=== PATIENT | male | born 1945 ===

== ENCOUNTER 2017-02-12 06:32 | Day surgery (SDC) | payer BC, MEDICARE ==
[2017-02-07 09:53] VITALS: BMI 26.9
[2017-02-12] MEDS ORDERED: Phenylephrine 10 mg/ml Inj ONE (07:21)
[2017-02-12] MEDS ORDERED: ePHEDrine 50 mg/ml Inj ONE (07:22)
[2017-02-12] MEDS ORDERED: Midazolam 2 MG/2 ML VIAL ONE ×3 (08:00→08:21)
[2017-02-12] MEDS ORDERED: Lidocaine 2% Inj (20ml) ONE (08:12)
[2017-02-12] MEDS ORDERED: Iodixanol 320 MG/ML 100 ML BOTTLE IV ONE (08:22)
[2017-02-12] MEDS ORDERED: Propofol 10 mg/ml Inj (20 ML) ONE (09:24)
--- NOTE | 2017-02-12 10:02 | PCM.SURG1 ---
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 ocelot used. balloon angioplasty of peroneal artery(2.5 x 120). perclose left groin Specimen/Specimens Removed: 0 Estimated Blood Loss: EBL {In ML}: 25 Blood Products Given: N/A Drains Used: No Drains Post-Op Condition: Good Date of Surgery/Procedure: 02/12/17 Time of Surgery/Procedure: 10:02
[2017-02-12] MEDS ORDERED: Sodium Chloride 0.9% 500 ML IV ONE (11:07)
[2017-02-12 12:14] VITALS: RESP 20
[2017-02-12 12:57] VITALS: BP 120/62; PULSE 67; TEMP 97.6; O2SAT 97
--- NOTE | 2017-02-13 09:44 | VAS ---
DATE: 02/12/2017 PREOPERATIVE DIAGNOSIS: Early rest pain, left foot. PROCEDURE CARRIED OUT: 1. Aortofemoral angiogram of the left groin with selective catheterization of right femoral artery. 2. Use of VersaLight device. 3. Balloon angioplasty of the peroneal artery with 2.5 x 120 mm balloon. SURGEON: Adriel Kruger Jr., MD PROGRAM SCHEDULER: None. ANESTHESIOLOGIST: Mr. Pan CRNA INDICATIONS: The patient is a 71-year-old male with a history of increasing pain in the right foot primarily occurring after walking short distances, less than half a block. OPERATIVE FINDINGS: The aorto-renal arteries and iliac arteries were free of significant occlusive disease. Both common and femoral arteries, profunda femoris arteries, superficial femoral arteries and popliteal arteries were widely patent without any significant occlusive disease. On the left side, there was severe tibial disease, but the posterior tibial continued down to the foot as major runoff vessel. On the right side, all 3 vessels were occluded at the trifurcation with reconstitution distally of the posterior tibial artery in the midcalf and the peroneal artery in the proximal portion of the calf. At this time, we attempted to cross this lesion with the use of a wire, which was unsuccessful. We then switched to the VersaLight device PXL and we were able to cross this lesion successfully into the peroneal artery. We were unable to do so into the posterior tibial. After this had been done, we successfully crossed the intraluminal. We ballooned this with 2.5 x 120 mm balloon with excellent cosmetic results and brisk flow to the foot. Subsequent films were taken then to demonstrate satisfactory flow distally and then the procedure was terminated. Perclose device was deployed in the left groin. The operation carried out was aortofemoral angiogram via left groin with selective catheterization of the right femoral artery. Use of the VersaLight device and then balloon angioplasty of the peroneal artery using 2.5 x 120 mm balloon with Perclose closure of left groin. Adriel Kruger Jr., MD cc: YANY Martino MD
== END 2017-02-12 13:03 | disposition home or self-care (01) ==
LOC: C.SPRAD 06:32
PROVIDERS: ATTEND Surgery Vascular Surgery
DX: I70.222 Atherosclerosis of native arteries of extremities with rest pain, left leg (principal)
CPT/HCPCS: 36200; 37228; 75625; 75716; 82948; C1725; C1760; C1766; C1769; C1887; C1894; J1644; J2250; J2370; J2704; J3010; J7040; Q9967